=== PATIENT | female | born 1985 | race Caucasian/White ===

== ENCOUNTER 2022-02-26 08:49 | Emergency (ER) | payer BC ==
[~2022-02-26] VITALS: Ht 172.7 cm; Wt 90.7 kg
[2022-02-26 09:02] VITALS: BP_SYST 171
--- NOTE | 2022-02-26 09:11 | NUR ---
BROUGHT BACK TO BED #3 AND REPORT GIVEN TO ALBINA
--- NOTE | 2022-02-26 09:13 | NUR ---
C/C Migraine x7 days with no relief after taking Rx prescribed by PCP. Patient has Hx of Migraines but states this is much worse then any previous. Patient denies any additional medical Hx. Patient appears anxious and tearful, denies Hx of Anxiety.
--- NOTE | 2022-02-26 09:27 | NUR ---
MD Hidalgo at bedside
[2022-02-26] MEDS ORDERED: KETOROLAC TROMETHAMINE 15 MG VIAL IVP ONE (09:45)
[2022-02-26] MEDS ORDERED: DIPHENHYDRAMINE INJ 50 MG/ML VIAL IVP ONE (09:45)
[2022-02-26] MEDS ORDERED: NACL 0.9% 1,000 ML IV ONE (09:45)
[2022-02-26] MEDS ORDERED: PROCHLORPERAZINE EDISYLATE 10 MG/2 ML VIAL IVP ONE (09:45)
--- NOTE | 2022-02-26 10:08 | NUR ---
Labs drawn and sent to lab
--- NOTE | 2022-02-26 10:08 | NUR ---
20G PIV to left FA
--- NOTE | 2022-02-26 10:09 | NUR ---
Medicated per order
--- NOTE | 2022-02-26 10:34 | NUR ---
Spouse at bedside
--- NOTE | 2022-02-26 11:06 | NUR ---
Patient states pain has improved since coming to ED, but states when she stands pain comes back 10/10. made aware.
[2022-02-26] MEDS ORDERED: SUMA100T PO (11:12)
[2022-02-26 11:24] VITALS: BP_SYST 126
--- NOTE | 2022-02-26 11:25 | NUR ---
Patient given written and verbal discharge instructions and verbalizes understanding. ER MD discussed with patient the results and treatment provided. Patient in stable condition. ID arm band removed. IV catheter removed intact and dressing applied, no active bleeding. Rx given. Patient educated on pain management and to follow up with PMD. Pain Scale 0/10 Opportunity for questions provided and answered. Medication side effect fact sheet provided.
== END 2022-02-26 11:25 | disposition home or self-care (01) ==
LOC: SED 08:49
DX: R51.9 Headache, unspecified (principal); Z79.899 Other long term (current) drug therapy
CPT/HCPCS: 99284; 96374; 96375; 81025; J1200; J1885; J0780